=== PATIENT | male | born 2000 | race Caucasian/White ===

== ENCOUNTER 2018-11-04 16:44 | Emergency (ER) | payer OTHER ==
[~2018-11-04] VITALS: Ht 188 cm; Wt 45.4 kg
[~2018-11-04 16:44] MED LIST: SULF1TAB38 PO
--- NOTE | 2018-11-04 17:01 | NUR ---
[facility] WITH PT.
--- NOTE | 2018-11-04 17:48 | NUR ---
TEE IN TALKING TO PT AT THIS TIME.
[2018-11-04] MEDS ORDERED: IBUPROFEN 800 MG (MOTRIN) TAB PO STA (17:55)
--- NOTE | 2018-11-04 17:55 | ED Lower Extremity ---
General Chief Complaint: Lower Extremity Stated Complaint: L ANKLE PAIN Nursing Triage Note: STATES HE WAS LOADING TRUCES WHEN HE FELL INTO THE TRUCK HURTING HIS LEFT ANKLE. Nursing Sepsis Screen: No Definite Risk History of Present Illness Date Seen by Provider: Nov 04, 2018 Time Seen by Provider: 17:10 Initial Comments 18-year-old male presents with injury to left ankle that occurred at work. He has a previous history of a sprain to the left ankle but had resolved and was not symptomatic at the time of this injury. Patient reports jumping down approximately 2-3 feet catching himself with his arms but twisting his left ankle when it hit the ground. He denies any head injury or other areas of discomfort related to the work injury. Onset: just prior to arrival Pain/Injury Location: left ankle Method of Injury: fell, twisted Modifying Factors: Improves With Rest Allergies and Home Medications Allergies Coded Allergies: No Known Drug Allergies (Unverified , 08/21/10) Home Medications No Active Prescriptions or Reported Meds Patient Home Medication List Home Medication List Reviewed: Yes Review of Systems Constitutional: no symptoms reported, see HPI Musculoskeletal: see HPI, joint pain (left ankle) All Other Systems Reviewed Negative Unless Noted: Yes Past Cmggkwn-Ihoaon-Ndjbvu Hx Past Med/Social Hx: Reviewed Nursing Past Med/Soc Hx Patient Social History Alcohol Use: Occasionally Uses Recreational Drug Use: No Smoking Status: Never a Smoker Recent Foreign Travel: No Contact w/Someone Who Travel: No Recent Infectious Disease Expo: No Past Medical History Surgeries: Yes (BILAT MYRINGOTOMY TUBES CHILD) Respiratory: No Cardiac: No Neurological: No Reproductive Disorders: No Gastrointestinal: No Musculoskeletal: No Endocrine: No Cancer: No Psychosocial: No Integumentary: No Blood Disorders: No Physical Exam Vital Signs Vital Signs - First Documented 11/04/18 16:50 Temp 98.0 Pulse 83 Resp 16 B/P (MAP) 156/100 (118) Pulse Ox 97 O2 Delivery Room Air Capillary Refill : Less Than 3 Seconds Height, Weight, BMI Height: 6'2.00" Weight: 100lbs. oz. 45.904703yc; BMI Method:Stated General Appearance: WD/WN, no apparent distress Cardiovascular: normal peripheral pulses, regular rate, rhythm Respiratory: chest non-tender, lungs clear, normal breath sounds Ankles: left ankle bone tenderness (distal fibula), left ankle limited range of motion (secondary to pain), left ankle soft tissue tenderness, left ankle swelling Neurologic/Tendon: normal sensation, normal motor functions, normal tendon functions Neurologic/Psychiatric: no motor/sensory deficits, alert, normal mood/affect, oriented x 3 Skin: normal color, warm/dry Lymphatic: no adenopathy Progress/Results/Core Measures Results/Orders My Orders Orders - TEE CANSECO Ankle, Left, 3 Views (11/04/18 17:06) Ibuprofen Tablet (Motrin Tablet) (11/04/18 17:55) Vital Signs/I&O 11/04/18 11/04/18 16:50 18:02 Temp 98.0 98.0 Pulse 83 83 Resp 16 16 B/P (MAP) 156/100 (118) 156/100 (118) Pulse Ox 97 97 O2 Delivery Room Air Blood Pressure Mean: 118 Diagnostic Imaging Diagonstic Imaging: Xray Plain Films/CT/US/NM/MRI: ankle Comments [place] NAME: KIKI ESTES [facility] REC#: [id number] PT STATUS: REG ER : 2000 PHYSICIAN: TEE CANSECO ADMIT DATE: 11/04/18/ER Draft Date of Exam:11/04/18 ANKLE, LEFT, 3 VIEWS PATIENT HISTORY: Fall, pain in the left ankle. TECHNIQUE: Three views of the left ankle. COMPARISON: 12/22/2015. FINDINGS: There is cortical irregularity at the tip of the lateral malleolus, which appears increased compared to the prior exam and may represent an avulsion fracture. There is increased widening at the medial clear space of the ankle mortise. There is moderate lateral soft tissue edema. No significant joint effusion is seen. Alignment otherwise appears normal. IMPRESSION: 1. Irregularity at the tip of the lateral malleolus in the left ankle concerning for avulsion fracture. 2. Widening of the medial clear space of the left ankle mortise concerning for a ligamentous injury. Dictated on workstation # [id number] Dict: [id number]/04/[id number] Trans: 11/04/18 [id number] Interpreted by: ANJU ELMORE MD Electronically signed by: Reviewed: Reviewed by Me Departure Impression Primary Impression: Left ankle sprain Qualified Codes: S93.412A - Sprain of calcaneofibular ligament of left ankle, initial encounter Disposition: 01 HOME, SELF-CARE Condition: Improved Departure-Patient Inst. Decision time for Depature: 17:50 Referrals: NO,LOCAL PHYSICIAN (PCP/Family) Primary Care Physician Patient Instructions: Ankle Sprain (DC) Add. Discharge Instructions: Ice and elevate left ankle 20 minutes every 2 hours while awake. Alternate between Tylenol 650 mg and ibuprofen 600 mg every 4 hours for pain and swelling. Follow-up with occupational health early next week. Use crutches, weightbearing as tolerated for the left lower extremity. Return to emergency department for new, urgent health care needs. All discharge instructions reviewed with patient and/or family. Voiced understa nding. Scripts No Active Prescriptions or Reported Meds Copy Copies To 1: AMBROSIO BOWMAN AMY ARNP Nov 04, 2018 17:55
--- NOTE | 2018-11-04 17:58 | Diagnostic Imaging Report ---
PATIENT HISTORY: Fall, pain in the left ankle. TECHNIQUE: Three views of the left ankle. COMPARISON: 12/22/2015. FINDINGS: There is cortical irregularity at the tip of the lateral malleolus, which appears increased compared to the prior exam and may represent an avulsion fracture. There is increased widening at the medial clear space of the ankle mortise. There is moderate lateral soft tissue edema. No significant joint effusion is seen. Alignment otherwise appears normal. IMPRESSION: 1. Irregularity at the tip of the lateral malleolus in the left ankle concerning for avulsion fracture. 2. Widening of the medial clear space of the left ankle mortise concerning for a ligamentous injury. Dictated by: Dictated on workstation # [id number]
--- NOTE | 2018-11-04 18:00 | NUR ---
PT REPORTS HAVING CRUTCHES AT HOME.
[2018-11-04 18:02] VITALS: BP 156/100
== END 2018-11-04 18:02 | disposition home or self-care (01) ==
LOC: EDUNIT# 16:44 → ER 16:46
DX: S93.402A Sprain of unspecified ligament of left ankle, initial encounter (principal); Z96.22 Myringotomy tube(s) status; W17.89XA Other fall from one level to another, initial encounter; X50.1XXA Overexertion from prolonged static or awkward postures, initial encounter; Y92.59 Other trade areas as the place of occurrence of the external cause; Y99.0 Civilian activity done for income or pay
CPT/HCPCS: 73610

== ENCOUNTER 2022-12-29 15:24 | Emergency (ER) | payer MEDICAID, OTHER ==
[~2022-12-29] VITALS: Ht 187.9 cm; Wt 108.0 kg
[2022-12-29 15:56] LABS: BASOPHILS % (AUTO) 1 % (0-10); EOSINOPHILS # (AUTO) 0.1 10^3/uL (0.0-0.3); EOSINOPHILS % (AUTO) 1 % (0-10); HEMATOCRIT 45 % (40-54); HEMOGLOBIN 14.8 g/dL (13.3-17.7); LYMPHOCYTES # (AUTO) 0.7 X 10^3 (1.0-4.0); LYMPHOCYTES % (AUTO) 9 % (12-44); MEAN CORPUSCULAR HEMOGLOBIN 29 pg (25-34); MEAN CORPUSCULAR HGB CONC 33 g/dL (32-36); MEAN CORPUSCULAR VOLUME 86 fL (80-99); MEAN PLATELET VOLUME 8.8 fL (9.0-12.2); MONOCYTES % (AUTO) 13 % (0-12); NEUTROPHILS # (AUTO) 6.1 X 10^3 (1.8-7.8); NEUTROPHILS % (AUTO) 76 % (42-75); PLATELET COUNT 310 10^3/uL (130-400)
--- NOTE | 2022-12-29 15:58 | ED Chest Pain ---
General Chief Complaint: Chest Pain Stated Complaint: CHEST PAIN, WEAK, BLURRY VISION Nursing Triage Note: PT AMB TO RM 1 WITH C/O CP OVER L RAMOS, CHILLS AND NAUSEA Source: patient Exam Limitations: no limitations History of Present Illness Date Seen by Provider: Dec 29, 2022 Time Seen by Provider: 15:49 Initial Comments 22-year-old male presents to the ER with complaint of intermittent chest pain for a while. He states that today it started again around 12:30 PM and has been constant since then. He states that often times it lasts for several hours even overnight. He describes the pain as sharp, reports the pain is worse with taking a deep breath. He also reports that he has been feeling fatigued, reports lower back pain and neck pain. Reports that he feels flushed, denies known fever. Denies diaphoresis with chest pain, denies radiation of chest pain. Does report some nausea, denies vomiting. Denies headache, cough, shortness of air, abdominal pain, diarrhea. Past medical history includes hypertension, he was recently started on lisinopril for this. Allergies and Home Medications Allergies Coded Allergies: No Known Drug Allergies (Unverified , 08/21/10) Patient Home Medication List Home Medication List Reviewed: Yes No Active Prescriptions or Reported Meds Review of Systems Review of Systems Constitutional: see HPI Past Sutrlhi-Cjtdkn-Adhkrj Hx Patient Social History Tobacco Use?: No Substance use?: Yes Substance type: Marijuana Alcohol Use?: Yes Alcohol Frequency: Once in a while Pt feels they are or have been: No Past Medical History Surgery/Hospitalization HX: HTN KNEE SCOPES Surgeries: Yes (BILAT MYRINGOTOMY TUBES CHILD) Respiratory: No Cardiac: No Neurological: No Reproductive Disorders: No Gastrointestinal: No Musculoskeletal: No Endocrine: No Cancer: No Psychosocial: No Integumentary: No Blood Disorders: No Physical Exam Vital Signs Vital Signs - First Documented 12/29/22 15:32 Temp 37.8 Pulse 114 Resp 21 B/P (MAP) 164/94 (117) Pulse Ox 96 O2 Delivery Room Air Capillary Refill : Height, Weight, BMI Height: 6'2.00" Weight: 100lbs. oz. 45.402989ce; 30.00 BMI Method:Stated General Appearance: No Apparent Distress, WD/WN Neck: Full Range of Motion, Normal Inspection, Supple Respiratory: Lungs Clear, Normal Breath Sounds, No Accessory Muscle Use, No Respiratory Distress Cardiovascular: Regular Rate, Rhythm Extremity: Normal Capillary Refill, Normal Range of Motion Neurologic/Psychiatric: Alert, Normal Mood/Affect Skin: Normal Color, Warm/Dry Progress/Results/Core Measures Results/Orders Lab Results Laboratory Tests Test 12/29/22 15:40 12/29/22 16:16 Range/Units White Blood Count 8.0 4.3-11.0 10^3/uL Red Blood Count 5.16 4.30-5.52 10^6/uL Hemoglobin 14.8 13.3-17.7 g/dL Hematocrit 45 40-54 % Mean Corpuscular Volume 86 80-99 fL Mean Corpuscular Hemoglobin 29 25-34 pg Mean Corpuscular Hemoglobin Concent 33 32-36 g/dL Red Cell Distribution Width 12.4 10.0-14.5 % Platelet Count 310 130-400 10^3/uL Mean Platelet Volume 8.8 L 9.0-12.2 fL Immature Granulocyte % (Auto) 1 % Neutrophils (%) (Auto) 76 H 42-75 % Lymphocytes (%) (Auto) 9 L 12-44 % Monocytes (%) (Auto) 13 H 0-12 % Eosinophils (%) (Auto) 1 0-10 % Basophils (%) (Auto) 1 0-10 % Neutrophils # (Auto) 6.1 1.8-7.8 X 10^3 Lymphocytes # (Auto) 0.7 L 1.0-4.0 X 10^3 Monocytes # (Auto) 1.0 0.0-1.0 X 10^3 Eosinophils # (Auto) 0.1 0.0-0.3 10^3/uL Basophils # (Auto) 0.0 0.0-0.1 10^3/uL Immature Granulocyte # (Auto) 0.1 0.0-0.1 10^3/uL Prothrombin Time 13.4 12.2-14.7 SEC INR Comment 1.0 0.8-1.4 Activated Partial Thromboplast Time 32 24-35 SEC D-Dimer < 0.27 0.00-0.49 UG/ML Sodium Level 139 135-145 MMOL/L Potassium Level 4.1 3.6-5.0 MMOL/L Chloride Level 104 98-107 MMOL/L Carbon Dioxide Level 24 21-32 MMOL/L Anion Gap 11 5-14 MMOL/L Blood Urea Nitrogen 17 7-18 MG/DL Creatinine 1.13 0.60-1.30 MG/DL Estimat Glomerular Filtration Rate 93 BUN/Creatinine Ratio 15 Glucose Level 68 L 70-105 MG/DL Calcium Level 10.0 8.5-10.1 MG/DL Corrected Calcium 8.5-10.1 MG/DL Magnesium Level 2.0 1.6-2.4 MG/DL Total Bilirubin 0.5 0.1-1.0 MG/DL Aspartate Amino Transf (AST/SGOT) 24 5-34 U/L Alanine Aminotransferase (ALT/SGPT) 41 0-55 U/L Alkaline Phosphatase 64 40-136 U/L Troponin I < 0.028 <0.028 NG/ML C-Reactive Protein High Sensitivity 1.12 H 0.00-0.50 MG/DL B-Type Natriuretic Peptide < 10.0 <100.0 PG/ML Total Protein 8.0 6.4-8.2 GM/DL Albumin 4.7 H 3.2-4.5 GM/DL Thyroid Stimulating Hormone (TSH) 0.95 0.35-4.94 UIU/ML Influenza Type A (RT-PCR) Not Detected Not Detecte Influenza Type B (RT-PCR) Not Detected Not Detecte SARS-CoV-2 RNA (RT-PCR) Not Detected Not Detecte My Orders Orders - MARIBELL ARREOLA COST ESTIMATING CLERK Cbc With Automated Diff (12/29/22 15:48) Magnesium (12/29/22 15:48) Chest 1 View, Ap/Pa Only (12/29/22 15:48) Comprehensive Metabolic Panel (12/29/22 15:48) Protime With Inr (12/29/22 15:48) Partial Thromboplastin Time (12/29/22 15:48) Monitor-Rhythm Ecg Trace Only (12/29/22 15:48) Ed Iv/Invasive Line Start (12/29/22 15:48) Troponin I [place] (12/29/22 15:48) Covid 19 Inhouse Test (12/29/22 15:48) Influenza A And B By Pcr (12/29/22 15:48) Ns Iv 1000 Ml (Sodium Chloride 0.9%) (12/29/22 16:00) Ketorolac Injection (Ketorolac Injection (12/29/22 16:00) Fibrin Degradation Products (12/29/22 15:58) Hs C Reactive Protein (12/29/22 16:06) Thyroid Stimulating Hormone (12/29/22 16:54) Bnp Lyric (12/29/22 17:02) Medications Given in ED Current Medications Medications Dose Ordered Sig/Victor Manuel Route Start Time Stop Time Status Last Admin Dose Admin Ketorolac Tromethamine 15 mg ONCE ONCE IVP 12/29/22 16:00 12/29/22 16:01 DC 12/29/22 16:02 15 MG Vital Signs/I&O 12/29/22 15:32 Temp 37.8 Pulse 114 Resp 21 B/P (MAP) 164/94 (117) Pulse Ox 96 O2 Delivery Room Air Blood Pressure Mean: 117 Progress Progress Note : Progress Note Patient seen and evaluated, resting comfortably in bed, no acute distress. Based on exam and symptoms, work-up initiated including CBC, CMP, magnesium, coags, troponin, D-dimer, chest x-ray, EKG. IV fluids and Toradol ordered. Departure Impression Primary Impression: Chest pain Qualified Codes: R07.89 - Other chest pain Additional Impression: Enlarged heart Disposition: HOME, SELF-CARE Condition: Stable Departure-Patient Inst. Decision time for Depature: 18:02 Referrals: MATT THORNE MD (PCP/Family) Primary Care Physician Patient Instructions: Chest Pain That Is Not Caused by the Heart (DC) Add. Discharge Instructions: Follow up with Dr. Thorne. Try taking 800 mg of Ibuprofen every 8 hours with food for the next couple of days. Return for severe chest pain, severe shortness of breath, or any other new, concerning, or worsening symptoms. All discharge instructions reviewed with patient and/or family. Voiced understanding. Scripts No Active Prescriptions or Reported Meds MARIBELL ARREOLA APRN Dec 29, 2022 15:58
[2022-12-29] MEDS ORDERED: KETOROLAC INJ 15 MG/ML VIAL IVP ONE (16:00)
[2022-12-29] MEDS ORDERED: NS IV 1000 ML 1,000 ML IV SCH (16:00)
[2022-12-29 16:07] LABS: PROTHROMBIN TIME PATIENT 13.4 SEC (12.2-14.7)
[2022-12-29 16:09] LABS: ALBUMIN 4.7 GM/DL (3.2-4.5)
[2022-12-29 16:10] LABS: CHLORIDE 104 MMOL/L (98-107); POTASSIUM 4.1 MMOL/L (3.6-5.0); SODIUM 139 MMOL/L (135-145)
[2022-12-29 16:12] LABS: GLUCOSE 68 MG/DL (70-105)
[2022-12-29 16:13] LABS: CARBON DIOXIDE 24 MMOL/L (21-32)
[2022-12-29 16:15] LABS: ALKALINE PHOSPHATASE 64 U/L (40-136)
[2022-12-29 16:16] LABS: CREATININE SERUM 1.13 MG/DL (0.60-1.30); GFR ESTIMATED 93
[2022-12-29 16:17] LABS: BUN/CREATININE RATIO 15
[2022-12-29 16:18] LABS: ALANINE AMINOTRANSFERASE 41 U/L (0-55)
--- NOTE | 2022-12-29 16:18 | Diagnostic Imaging Report ---
INDICATION: Chest pain COMPARISON: None available. TECHNIQUE: Single radiograph chest dated 12/29/2022. FINDINGS: The cardiac silhouette is mildly enlarged. Central pulmonary vascular congestion is present. Low lung volumes, though the lungs are clear of focal pulmonary opacity. No pleural effusion. No acute osseous abnormality. IMPRESSION: Prominence of the cardiac silhouette and pulmonary vasculature. This is likely accentuated by patient body habitus. No significant interstitial edema or pleural effusion. Dictated by: Dictated on workstation # [id number]
[2022-12-29 16:47] LABS: BILIRUBIN,TOTAL 0.5 MG/DL (0.1-1.0)
[2022-12-29 18:16] VITALS: BP 138/85
== END 2022-12-29 18:16 | disposition home or self-care (01) ==
LOC: EDUNIT# 15:24 → ER 15:28
DX: I51.7 Cardiomegaly (principal); I10 Essential (primary) hypertension; Z79.899 Other long term (current) drug therapy; Z20.822 Contact with and (suspected) exposure to COVID-19
CPT/HCPCS: 36415; 71045; 80053; 83735; 83880; 84443; 84484; 85025; 85379; 85610; 85730; 86141; 87636; 93005; 93041